=== PATIENT | male | born 1970 | race American Indian/Alaskan Native ===

== ENCOUNTER 2016-08-30 08:44 | Emergency (ER) | payer OTHER ==
[2016-08-30 08:51] VITALS: BP 137/96
[2016-08-30] MEDS ORDERED: NACL 0.9% 1000 ML 1,000 ML IV ONE (09:05)
[2016-08-30] MEDS ORDERED: BENADRYL IV ONE (09:06)
[2016-08-30] MEDS ORDERED: PEPCID IV ONE (09:06)
--- NOTE | 2016-08-30 09:15 | Emergency Department Report ---
ED Allergic Reaction HPI - General Chief complaint: Allergic Reaction Stated complaint: SWOLLEN LIPS Time Seen by Provider: 08/30/16 09:05 Source: patient Mode of arrival: Ambulatory Limitations: No Limitations - History of Present Illness MD Complaint: allergic reaction, facial swelling -: Sudden Exposure: other (lisinopril) Symptoms: facial swelling, lip swelling. denies: difficulty breathing, hoarseness, syncopy, dizziness, nausea, vomiting Severity: mild Treatment Prior to Arrival: none Previous Allergy History: none - Related Data Home Medications Medication Instructions Recorded Confirmed Last Taken Efavirenz/Emtricitab/Tenofovir 1 each PO QDAY 08/30/16 08/30/16 08/30/16 [Atripla Tablet] Previous Rx's Medication Instructions Recorded Last Taken Type Famotidine [Pepcid] 20 mg PO BID #14 tablet 08/30/16 Unknown Rx diphenhydrAMINE [Benadryl CAP] 25 mg PO Q8HR #15 capsule 08/30/16 Unknown Rx predniSONE [Deltasone] 50 mg PO QDAY #5 tab 08/30/16 Unknown Rx Allergies Allergy/AdvReac Type Severity Reaction Status Date / Time No Known Allergies Allergy Unverified 12/06/14 11:38 ED Review of Systems ROS: Stated complaint: SWOLLEN LIPS Other details as noted in HPI Comment: All other systems reviewed and negative ED Past Medical Hx - Past Medical History Previous Medical History?: Yes Hx Hypertension: Yes Additional medical history: HIV - Surgical History Past Surgical History?: No - Social History Smoking Status: Current Every Day Smoker Substance Use Type: None - Medications Home Medications: Home Medications Medication Instructions Recorded Confirmed Last Taken Type Efavirenz/Emtricitab/Tenofovir 1 each PO QDAY 08/30/16 08/30/16 08/30/16 History [Atripla Tablet] Famotidine [Pepcid] 20 mg PO BID #14 tablet 08/30/16 Unknown Rx diphenhydrAMINE [Benadryl CAP] 25 mg PO Q8HR #15 capsule 08/30/16 Unknown Rx predniSONE [Deltasone] 50 mg PO QDAY #5 tab 08/30/16 Unknown Rx ED Physical Exam - General Limitations: No Limitations General appearance: alert, in no apparent distress - Head Head exam: Present: atraumatic, normocephalic - Eye Eye exam: Present: normal appearance, PERRL - ENT ENT exam: Present: normal exam, mucous membranes moist, other (right side upper lip swelling/ no tongue involvement , no stridor) - Neck Neck exam: Present: normal inspection - Respiratory Respiratory exam: Present: normal lung sounds bilaterally. Absent: respiratory distress - Cardiovascular Cardiovascular Exam: Present: regular rate, normal rhythm. Absent: systolic murmur, diastolic murmur, rubs, gallop - GI/Abdominal GI/Abdominal exam: Present: soft, normal bowel sounds - Rectal Rectal exam: Present: deferred - Extremities Exam Extremities exam: Present: normal inspection - Back Exam Back exam: Present: normal inspection - Neurological Exam Neurological exam: Present: alert, oriented X3 - Psychiatric Psychiatric exam: Present: normal affect, normal mood - Skin Skin exam: Present: warm, dry, intact, normal color. Absent: rash ED Course Vital Signs 08/30/16 08/30/16 08:47 09:03 Temperature 97.9 F Pulse Rate 83 Respiratory 18 18 Rate Blood Pressure 137/96 O2 Sat by Pulse 100 100 Oximetry ED Medical Decision Making - Medical Decision Making patient doing well, will dc and follow up. will stop lisinopril , start on new BP med and give him prednisone to go home Critical care attestation.: If time is entered above; I have spent that time in minutes in the direct care of this critically ill patient, excluding procedure time. ED Disposition Clinical Impression: Angioedema Disposition: DC-01 TO HOME OR SELFCARE Is pt being admited?: No Does the pt Need Aspirin: No Condition: Stable Instructions: Angioedema (ED) Prescriptions: diphenhydrAMINE [Benadryl CAP] 25 mg PO Q8HR #15 capsule Famotidine [Pepcid] 20 mg PO BID #14 tablet predniSONE [Deltasone] 50 mg PO QDAY #5 tab Time of Disposition: 11:58
== END 2016-08-30 12:09 | disposition home or self-care (01) ==
LOC: ED 08:44
DX: T78.3XXA Angioneurotic edema, initial encounter (principal); I10 Essential (primary) hypertension; F17.200 Nicotine dependence, unspecified, uncomplicated
CPT/HCPCS: 96361; 96374; 96375; 99282; J1200; J2930; J7030